=== PATIENT | female | born 1950 | race Caucasian/White ===

== ENCOUNTER 2022-02-13 03:08 | Observation (INO) ==
[2022-02-13] MEDS ORDERED: ALBUTEROL/IPRATROPIUM 3 ML NEB RESP TX STA (03:22)
[2022-02-13] MEDS ORDERED: methylPREDNISolone SOD SUC 125 MG/2 ML VIAL IV STA (03:22)
[2022-02-13] MEDS ORDERED: FUROSEMIDE 40 MG/4 ML VIAL IV STA (03:22)
[2022-02-13 03:51] LABS: Basophils # 0.1 10*3/uL (0.0-0.2); Basophils % 1.1 % (0.0-0.8); Eosinophils # 0.1 10*3/uL (0.0-0.87); Eosinophils % 1.1 % (0.00-10.9); Hematocrit 38.7 VOL% (35.7-47.0); Hemoglobin 12.1 GM/DL (12.0-16.0); Immature Granulocytes % 0.5 %; Immature Granulocytes Absolute 0.04 #; Lymphocytes # 1.8 10*3/uL (1.4-4.0); Lymphocytes % 23.2 % (21.3-54.2); Mean Corpuscular HGB Conc 31.3 GM/DL (32-36); Mean Platelet Volume 10.5 FL (9.6-12.0); Monocytes # 0.5 10*3/uL (0.11-0.8); Monocytes % 5.8 % (1.7-12.7); Neutrophils % 68.3 % (38.7-73.9); Platelet Count 282 T/CUMM (130-400); Red Blood Count 3.87 MC/CUMM (3.8-5.5); Red Cell Distribution Width 14.2 % (9.3-17.3); White Blood Count 7.9 T/CUMM (4-12)
[2022-02-13 04:22] LABS: Albumin 2.7 G/DL (3.4-5.0); Bilirubin,Total 0.4 MG/DL (0.20-1.00); Calcium 8.3 MG/DL (8.5-10.1); Osmolality,Calculated 287.7 MOS/KG (273-304); Total Protein 6.1 G/DL (6.4-8.2)
[2022-02-13] MEDS ORDERED: ONDANSETRON 4 MG/2 ML VIAL IV PRN (05:51)
[2022-02-13] MEDS ORDERED: MAGNESIUM SULF RIDER 4 GM/100 ML PREMIX IV PRN (05:51)
[2022-02-13] MEDS ORDERED: MAGNESIUM SULF RIDER 2 GM/50 ML PREMIX IV PRN (05:51)
[2022-02-13] MEDS ORDERED: MORPHINE 2 MG/1 ML SYRINGE IV PRN (05:51)
[2022-02-13] MEDS ORDERED: FUROSEMIDE 20 MG/2 ML VIAL IV SCH (08:00)
[2022-02-13] MEDS ORDERED: PANTOPRAZOLE 40 MG TABLET PO SCH (09:00)
[2022-02-13] MEDS: POTASSIUM CHLORIDE 10 MEQ TABLET PO SCH (09:13)
[2022-02-13] MEDS: SODIUM CHLORIDE 1 GM TABLET PO SCH ×3 (09:13→20:40)
[2022-02-13] MEDS: FUROSEMIDE 40 MG/4 ML VIAL IV SCH ×2 (09:13→15:44)
[2022-02-13] MEDS: THYROID 60 MG TABLET PO SCH (09:13)
[2022-02-13] MEDS: MULTIVITAMIN (CENTRUM) TABLET PO SCH (09:13)
[2022-02-13] MEDS: MAGNESIUM OXIDE 400 MG TABLET PO SCH (09:14)
[2022-02-13] MEDS: ASPIRIN EC 81 MG TABLET PO SCH (09:14)
[2022-02-13] MEDS: CETIRIZINE 10 MG TABLET PO SCH (09:14)
[2022-02-13] MEDS: FLUDROCORTISONE 0.1 MG TABLET PO SCH (09:14)
[2022-02-13] MEDS: METOPROLOL SUCCINATE XL 25 MG TABLET PO SCH (09:15)
[2022-02-13] MEDS: AMIODARONE 200 MG TABLET PO SCH (09:15)
[2022-02-13] MEDS: SIMVASTATIN 20 MG TABLET PO SCH (09:15)
[2022-02-13] MEDS: PANTOPRAZOLE 40 MG TABLET PO SCH (09:17)
[2022-02-13] MEDS: CALCIUM (CARBONATE) 500 MG TABLET PO SCH (09:19)
[2022-02-13] MEDS: [UNRECOGNIZED DRUG - OTHER] PO SCH ×2 (09:29→20:40)
[2022-02-13] MEDS: VITAMINS LIPOTROPICS PO SCH ×2 (09:29→20:40)
[2022-02-13] MEDS ORDERED: AZITHROMYCIN 250 MG TABLET PO ONE (09:41)
[2022-02-13] MEDS: ALBUTEROL/IPRATROPIUM 3 ML NEB RESP TX SCH (20:28)
[2022-02-14] MEDS: ALBUTEROL/IPRATROPIUM 3 ML NEB RESP TX SCH ×4 (00:07→07:46)
[2022-02-14 05:09] LABS: Basophils % 0.1 % (0.0-0.8); Hematocrit 35.5 VOL% (35.7-47.0); Hemoglobin 11.4 GM/DL (12.0-16.0); Immature Granulocytes % 0.5 %; Immature Granulocytes Absolute 0.05 #; Lymphocytes # 0.7 10*3/uL (1.4-4.0); Mean Corpuscular HGB Conc 32.1 GM/DL (32-36); Mean Corpuscular Volume 97.3 FL (87-102); Mean Platelet Volume 10.6 FL (9.6-12.0); Monocytes # 0.5 10*3/uL (0.11-0.8); Monocytes % 4.9 % (1.7-12.7); Neutrophils % 86.5 % (38.7-73.9); Platelet Count 248 T/CUMM (130-400); Red Blood Count 3.65 MC/CUMM (3.8-5.5); Red Cell Distribution Width 13.9 % (9.3-17.3); White Blood Count 9.2 T/CUMM (4-12)
[2022-02-14 05:35] LABS: Calcium 8.2 MG/DL (8.5-10.1); Potassium 3.7 MMOL/L (3.5-5.1)
[2022-02-14 05:39] LABS: Risk Ratio 1.78; Thyroid Stimulating Hormone 0.497 uIU/ml (0.358-3.74); VLDL Cholesterol 8.8 MG/DL
[2022-02-14] MEDS: CETIRIZINE 10 MG TABLET PO SCH (08:58)
[2022-02-14] MEDS: SODIUM CHLORIDE 1 GM TABLET PO SCH (08:58)
[2022-02-14] MEDS: THYROID 60 MG TABLET PO SCH (08:58)
[2022-02-14] MEDS: CALCIUM (CARBONATE) 500 MG TABLET PO SCH (08:58)
[2022-02-14] MEDS: MAGNESIUM OXIDE 400 MG TABLET PO SCH (08:58)
[2022-02-14] MEDS: SIMVASTATIN 20 MG TABLET PO SCH (08:58)
[2022-02-14] MEDS: AMIODARONE 200 MG TABLET PO SCH (08:58)
[2022-02-14] MEDS: ASPIRIN EC 81 MG TABLET PO SCH (08:59)
[2022-02-14] MEDS: POTASSIUM CHLORIDE 10 MEQ TABLET PO SCH (08:59)
[2022-02-14] MEDS: MULTIVITAMIN (CENTRUM) TABLET PO SCH (08:59)
[2022-02-14] MEDS: FLUDROCORTISONE 0.1 MG TABLET PO SCH (08:59)
[2022-02-14] MEDS ORDERED: AZITHROMYCIN 250 MG TABLET PO SCH (09:00)
[2022-02-14] MEDS: PANTOPRAZOLE 40 MG TABLET PO SCH (09:00)
[2022-02-14 09:16] VITALS: BP 83/43
[2022-02-14] MEDS: METOPROLOL SUCCINATE XL 25 MG TABLET PO SCH (09:23)
[2022-02-14] MEDS: VITAMINS LIPOTROPICS PO SCH (09:23)
[2022-02-14] MEDS: [UNRECOGNIZED DRUG - OTHER] PO SCH (09:23)
[2022-02-14] MEDS: FUROSEMIDE 40 MG/4 ML VIAL IV SCH (09:23)
== END 2022-02-14 10:24 | disposition home or self-care (01) ==
LOC: N.ED 03:08 → N.EDINP 03:08 → N.TELEN 05:51
PROVIDERS: ADMIT Internal Medicine Interventional Cardiology; ATTEND Internal Medicine Interventional Cardiology

== ENCOUNTER 2022-02-19 23:03 | Observation (INO) ==
[2022-02-19 23:27] LABS: Basophils # 0.1 10*3/uL (0.0-0.2); Basophils % 1.2 % (0.0-0.8); Eosinophils # 0.1 10*3/uL (0.0-0.87); Eosinophils % 1.9 % (0.00-10.9); Hematocrit 40.8 VOL% (35.7-47.0); Hemoglobin 12.5 GM/DL (12.0-16.0); Immature Granulocytes % 0.6 %; Immature Granulocytes Absolute 0.04 #; Lymphocytes % 27.1 % (21.3-54.2); Mean Corpuscular HGB Conc 30.6 GM/DL (32-36); Mean Platelet Volume 10.2 FL (9.6-12.0); Monocytes # 0.5 10*3/uL (0.11-0.8); Monocytes % 6.9 % (1.7-12.7); Neutrophils % 62.3 % (38.7-73.9); Platelet Count 295 T/CUMM (130-400); Red Cell Distribution Width 14.1 % (9.3-17.3); White Blood Count 7.2 T/CUMM (4-12)
[2022-02-19 23:52] LABS: Alanine Aminotransferase 34 U/L (13-56); Albumin 3.1 G/DL (3.4-5.0); Alkaline Phosphatase 95 U/L (45-117); Aspartate Amino Transferase 27 U/L (0-37); Bilirubin,Total < 0.39 MG/DL (0.20-1.00); Blood Urea Nitrogen 14 MG/DL (7-18); Calcium 8.4 MG/DL (8.5-10.1); Carbon Dioxide 31 MMOL/L (21-32); Chloride 109 MMOL/L (98-107); Glucose 89 MG/DL (74-106); Osmolality,Calculated 285.8 MOS/KG (273-304); Potassium 4.3 MMOL/L (3.5-5.1); Sodium 144 MMOL/L (136-145); Total Protein 6.5 G/DL (6.4-8.2)
[2022-02-20] MEDS ORDERED: ASPIRIN 325 MG TABLET PO STA (00:42)
[2022-02-20] MEDS ORDERED: FUROSEMIDE 40 MG/4 ML VIAL IV STA (00:43)
[2022-02-20] MEDS ORDERED: ONDANSETRON 4 MG/2 ML VIAL IV PRN (03:49)
[2022-02-20] MEDS ORDERED: hydrALAZINE 20 MG/1 ML VIAL IV PRN (03:49)
[2022-02-20] MEDS ORDERED: POTASSIUM CHLORIDE RIDER 10 MEQ/100 ML PREMIX IV PRN (03:49)
[2022-02-20] MEDS ORDERED: MORPHINE 2 MG/1 ML SYRINGE IV PRN (03:49)
[2022-02-20 06:10] LABS: Calcium 8.8 MG/DL (8.5-10.1); Potassium 4.5 MMOL/L (3.5-5.1)
[2022-02-20] MEDS ORDERED: CETIRIZINE 10 MG TABLET PO PRN (07:31)
[2022-02-20] MEDS: FUROSEMIDE 40 MG/4 ML VIAL IV SCH ×2 (08:30→16:53)
[2022-02-20] MEDS ORDERED: CALCIUM (CARBONATE) 600 MG TABLET PO SCH (09:00)
[2022-02-20] MEDS: SIMVASTATIN 20 MG TABLET PO SCH (09:49)
[2022-02-20] MEDS: AMIODARONE 200 MG TABLET PO SCH (09:49)
[2022-02-20] MEDS: ASPIRIN EC 81 MG TABLET PO SCH (09:49)
[2022-02-20] MEDS: PANTOPRAZOLE 40 MG TABLET PO SCH (09:49)
[2022-02-20] MEDS: METOPROLOL SUCCINATE XL 25 MG TABLET PO SCH (09:49)
[2022-02-20] MEDS: SODIUM CHLORIDE 1 GM TABLET PO SCH ×3 (10:05→21:40)
[2022-02-20] MEDS: FLUDROCORTISONE 0.1 MG TABLET PO SCH (10:05)
[2022-02-20] MEDS: THYROID 60 MG TABLET PO SCH (10:05)
[2022-02-20] MEDS ORDERED: NALOXONE 0.4 MG/ML VIAL IV PRN (13:41)
[2022-02-20] MEDS: CALCIUM (CARBONATE) 500 MG TABLET PO SCH ×2 (16:53→21:38)
[2022-02-20] MEDS: ACETAMINOPHEN 325 MG TABLET PO PRN (21:39)
[2022-02-21 04:42] LABS: Basophils # 0.1 10*3/uL (0.0-0.2); Basophils % 1.2 % (0.0-0.8); Eosinophils # 0.1 10*3/uL (0.0-0.87); Eosinophils % 1.5 % (0.00-10.9); Hematocrit 36.1 VOL% (35.7-47.0); Hemoglobin 11.7 GM/DL (12.0-16.0); Immature Granulocytes % 0.5 %; Immature Granulocytes Absolute 0.03 #; Lymphocytes # 1.7 10*3/uL (1.4-4.0); Lymphocytes % 25.4 % (21.3-54.2); Mean Corpuscular HGB Conc 32.4 GM/DL (32-36); Mean Corpuscular Volume 96.8 FL (87-102); Mean Platelet Volume 10.3 FL (9.6-12.0); Monocytes # 0.5 10*3/uL (0.11-0.8); Monocytes % 7.5 % (1.7-12.7); Neutrophils % 63.9 % (38.7-73.9); Platelet Count 288 T/CUMM (130-400); Red Blood Count 3.73 MC/CUMM (3.8-5.5); White Blood Count 6.7 T/CUMM (4-12)
[2022-02-21 05:02] LABS: Calcium 8.2 MG/DL (8.5-10.1); Potassium 2.9 MMOL/L (3.5-5.1)
[2022-02-21] MEDS ORDERED: POTASSIUM CHLORIDE 20 MEQ TABLET PO ONE ×2 (07:58)
[2022-02-21] MEDS ORDERED: diphenhydrAMINE CAP 25 MG CAPSULE PO ONE (09:00)
[2022-02-21] MEDS ORDERED: DIAZEPAM 5 MG TABLET PO ONE (09:00)
[2022-02-21] MEDS: FUROSEMIDE 40 MG/4 ML VIAL IV SCH (09:06)
[2022-02-21] MEDS: METOPROLOL SUCCINATE XL 25 MG TABLET PO SCH (09:07)
[2022-02-21] MEDS: THYROID 60 MG TABLET PO SCH (09:07)
[2022-02-21] MEDS: ASPIRIN EC 81 MG TABLET PO SCH (09:07)
[2022-02-21] MEDS: CALCIUM (CARBONATE) 500 MG TABLET PO SCH ×3 (09:07→23:25)
[2022-02-21] MEDS: PANTOPRAZOLE 40 MG TABLET PO SCH (09:08)
[2022-02-21] MEDS: ACETAMINOPHEN 325 MG TABLET PO PRN (09:08)
[2022-02-21] MEDS: SIMVASTATIN 20 MG TABLET PO SCH (09:08)
[2022-02-21] MEDS: FLUDROCORTISONE 0.1 MG TABLET PO SCH (09:09)
[2022-02-21] MEDS: AMIODARONE 200 MG TABLET PO SCH (09:09)
[2022-02-21] MEDS: POTASSIUM CHLORIDE 20 MEQ TABLET PO SCH ×2 (09:10→23:26)
[2022-02-21] MEDS: SODIUM CHLORIDE 1 GM TABLET PO SCH ×3 (09:13→23:26)
[2022-02-21] MEDS ORDERED: ceFAZolin 1,000 MG VIAL IRRIG ONE (13:41)
[2022-02-21] MEDS ORDERED: ceFAZolin 1,000 MG VIAL ONE (14:56)
[2022-02-21] MEDS ORDERED: HEPARIN/NACL 0.9% 2 UNITS/ML 1,000 UNIT/500 ML BAG IV ONE (14:56)
[2022-02-21] MEDS ORDERED: fentaNYL 100 MCG/2 ML VIAL ONE (15:05)
[2022-02-21] MEDS ORDERED: MIDAZOLAM 2 MG/2 ML VIAL ONE (15:12)
[2022-02-22 06:40] LABS: Calcium 9.1 MG/DL (8.5-10.1); Osmolality,Calculated 283.1 MOS/KG (273-304); Potassium 3.5 MMOL/L (3.5-5.1)
[2022-02-22] MEDS ORDERED: FUROSEMIDE 40 MG TABLET PO SCH (09:00)
[2022-02-22] MEDS: THYROID 60 MG TABLET PO SCH (09:45)
[2022-02-22] MEDS: PANTOPRAZOLE 40 MG TABLET PO SCH (09:45)
[2022-02-22] MEDS: CALCIUM (CARBONATE) 500 MG TABLET PO SCH (09:45)
[2022-02-22] MEDS: AMIODARONE 200 MG TABLET PO SCH (09:45)
[2022-02-22] MEDS: ASPIRIN EC 81 MG TABLET PO SCH (09:46)
[2022-02-22] MEDS: POTASSIUM CHLORIDE 20 MEQ TABLET PO SCH (09:46)
[2022-02-22] MEDS: SODIUM CHLORIDE 1 GM TABLET PO SCH (09:46)
[2022-02-22] MEDS: FLUDROCORTISONE 0.1 MG TABLET PO SCH (09:46)
[2022-02-22] MEDS: SIMVASTATIN 20 MG TABLET PO SCH (09:46)
[2022-02-22] MEDS: METOPROLOL SUCCINATE XL 25 MG TABLET PO SCH (09:46)
[2022-02-22 09:53] LABS: Basophils # 0.1 10*3/uL (0.0-0.2); Basophils % 1.2 % (0.0-0.8); Eosinophils # 0.1 10*3/uL (0.0-0.87); Eosinophils % 1.1 % (0.00-10.9); Hematocrit 36.6 VOL% (35.7-47.0); Hemoglobin 11.9 GM/DL (12.0-16.0); Immature Granulocytes % 0.6 %; Immature Granulocytes Absolute 0.04 #; Mean Corpuscular HGB Conc 32.5 GM/DL (32-36); Mean Corpuscular Volume 97.1 FL (87-102); Mean Platelet Volume 9.9 FL (9.6-12.0); Monocytes # 0.5 10*3/uL (0.11-0.8); Neutrophils % 73.1 % (38.7-73.9); Platelet Count 270 T/CUMM (130-400); Red Blood Count 3.77 MC/CUMM (3.8-5.5); White Blood Count 6.5 T/CUMM (4-12)
[2022-02-22 14:56] VITALS: BP 145/98
== END 2022-02-22 14:07 | disposition home or self-care (01) ==
LOC: N.ED 23:03 → N.EDINP 23:03 → SUATTDRO 02-20 03:49 → N.TELES 02-20 11:30
PROVIDERS: ADMIT Internal Medicine; ATTEND Emergency Medicine